=== PATIENT | female | born 1950 | race Caucasian/White ===

== ENCOUNTER → 2017-11-22 | Outpatient (CLI) | payer OTHER ==
[~2017-11-22] MED LIST: FOSAMAX70 MG PO; VITAMIN D31000 UNIT PO; VITAMIN D35000 UNIT PO
== END | disposition home or self-care (01) ==
LOC: OPR 08:35 → EDSTATUS 09:00 → OPR 09:00
PROC: 0BDK4ZX Extraction of Right Lung, Percutaneous Endoscopic Approach, Diagnostic (ICD-10-PCS; principal; 2017-11-22)
DX: R91.1 Solitary pulmonary nodule (principal); E21.5 Disorder of parathyroid gland, unspecified; Z83.3 Family history of diabetes mellitus; Z82.49 Family history of ischemic heart disease and other diseases of the circulatory system; Z82.5 Family history of asthma and other chronic lower respiratory diseases
CPT/HCPCS: 71045; 77012; 88305; 88313